=== PATIENT | male | born 1975 | race Caucasian/White ===

== ENCOUNTER 2017-08-10 14:42 | Emergency (ER) | payer BC, OTHER ==
[2017-08-10] MEDS ORDERED: SODIUM CHLORIDE 0.9% 1,000 ML IV STA (16:24)
[2017-08-10] MEDS ORDERED: ONDANSETRON 4 MG/2 ML VIAL IVP STA (16:24)
[2017-08-10] MEDS ORDERED: DICYCLOMINE 10 MG/ML 2 ML AMP IM STA (16:24)
[2017-08-10] MEDS ORDERED: FAMOTIDINE 20 MG/2 ML VIAL IV STA (16:25)
--- NOTE | 2017-08-10 16:35 | ED ---
General Adult HPI - General Chief complaint: Nausea/Vomiting/Diarrhea Stated complaint: Vomiting Time Seen by Provider: 08/10/17 16:16 Source: patient, RN notes reviewed Mode of arrival: ambulatory Limitations: no limitations - History of Present Illness Initial comments: 41-year-old male presents to the emergency Department chief complaint of nausea vomiting diarrhea. Patient states his whole family had this now he has it. Patient states that going on for about 5 days. Patient denies any abdominal pain with this. Patient denies any fever but states he has had chills. Patient states he just is feeling dry and dehydrated we thought we do some fluids to help him get through this. Patient is significant abdominal history or any abdominal surgeries. Patient does admit that he had both to 3 days with a clicking he's been increasing and evaluate that as well. He states now some bulging along the surgical left leg as well. Patient denies any recent fever, chills, shortness of breath, chest pain, back pain, abdominal pain, numbness or tingling, dysuria or hematuria, constipation, headaches or visual changes, or any other current symptoms. - Related Data Home Medications Medication Instructions Recorded Confirmed Lisinopril [Zestril] 20 mg PO DAILY 08/10/17 08/10/17 Previous Rx's Medication Instructions Recorded Dicyclomine [Bentyl] 10 mg PO TID #20 capsule 08/10/17 Ondansetron Odt [Zofran ODT] 4 mg PO Q8HR PRN #20 tab 08/10/17 Allergies Allergy/AdvReac Type Severity Reaction Status Date / Time No Known Allergies Allergy Verified 08/10/17 16:29 Review of Systems ROS Statement: Those systems with pertinent positive or pertinent negative responses have been documented in the HPI. ROS Other: All systems not noted in ROS Statement are negative. Past Medical History Past Medical History: Sleep Apnea/CPAP/BIPAP History of Any Multi-Drug Resistant Organisms: None Reported Past Surgical History: Joint Replacement Past Psychological History: No Psychological Hx Reported Smoking Status: Current every day smoker Past Alcohol Use History: None Reported Past Drug Use History: None Reported General Exam - General Exam Comments Initial Comments: General: The patient is awake and alert, in no distress, and does not appear acutely ill. Eye: Pupils are equal, round and reactive to light, extra-ocular movements are intact; there is normal conjunctiva bilaterally. No signs of icterus. Ears, nose, mouth and throat: There are moist mucous membranes and no oral lesions. Neck: The neck is supple, there is no tenderness. Cardiovascular: There is a regular rate and rhythm. No murmur, rub or gallop is appreciated. Respiratory: Lungs are clear to auscultation, respirations are non-labored, breath sounds are equal. No wheezes, stridor, rales, or rhonchi. Gastrointestinal: Soft, non-distended, non-tender abdomen without masses or organomegaly noted. There is no rebound or guarding present. No CVA tenderness. Bowel sounds are unremarkable. Back: There is no tenderness to palpation in the midline. There is no obvious deformity. No rashes noted. Musculoskeletal: Does appear to have a surgical incision to the left hip but does have some fluctuation of the skin. No redness no erythema most likely due to nonhealing deeper tissue together. Normal ROM, no tenderness, There is no pedal edema. There is no calf tenderness or swelling. Sensation intact. Pulses equal bilaterally 2+. Neurological: CN II-XII intact, There are no obvious motor or sensory deficits. Coordination appears grossly intact. Speech is normal. Skin: Skin is warm and dry and no rashes or lesions are noted. Psychiatric: Cooperative, appropriate mood & affect, normal judgment. Limitations: no limitations Course Vital Signs 08/10/17 14:53 Temperature 98.3 F Pulse Rate 92 Respiratory 18 Rate Blood Pressure 156/101 O2 Sat by Pulse 98 Oximetry Medical Decision Making - Medical Decision Making 41-year-old male presents for nausea vomiting diarrhea with left hip bulging. This time it just appears that the patient's deeper layers of skin have dehisced warming that has been chronic for the patient. At this time hip x- rays are negative of the repair. Patient's lab work is been reviewed at this time patient's symptoms are consistent with a gastroenteritis. It discuss however other etiologies for symptoms. Discussed return parameters and follow- up and all patient's questions. He stated he understood he is. This time we will be discharged home - Lab Data Result diagrams: 08/10/17 16:15 08/10/17 16:15 Lab Results 08/10/17 08/10/17 Range/Units 16:15 16:15 WBC 10.5 (3.8-10.6) k/uL RBC 5.08 (4.30-5.90) m/uL Hgb 15.0 (13.0-17.5) gm/dL Hct 45.9 (39.0-53.0) % MCV 90.4 (80.0-100.0) fL MCH 29.6 (25.0-35.0) pg MCHC 32.8 (31.0-37.0) g/dL RDW 13.1 (11.5-15.5) % Plt Count 283 (150-450) k/uL Neutrophils % 64 % Lymphocytes % 26 % Monocytes % 6 % Eosinophils % 2 % Basophils % 0 % Neutrophils # 6.7 (1.3-7.7) k/uL Lymphocytes # 2.8 (1.0-4.8) k/uL Monocytes # 0.6 (0-1.0) k/uL Eosinophils # 0.2 (0-0.7) k/uL Basophils # 0.0 (0-0.2) k/uL Sodium 141 (137-145) mmol/L Potassium 4.5 (3.5-5.1) mmol/L Chloride 108 H (98-107) mmol/L Carbon Dioxide 27 (22-30) mmol/L Anion Gap 6 mmol/L BUN 10 (9-20) mg/dL Creatinine 0.71 (0.66-1.25) mg/dL Est GFR (MDRD) Af Amer >60 (>60 ml/min/1.73 sqM) Est GFR (MDRD) Non-Af >60 (>60 ml/min/1.73 sqM) Glucose 102 H (74-99) mg/dL Calcium 9.2 (8.4-10.2) mg/dL Total Bilirubin 0.3 (0.2-1.3) mg/dL AST 23 (17-59) U/L ALT 31 (21-72) U/L Alkaline Phosphatase 84 (38-126) U/L Total Protein 6.5 (6.3-8.2) g/dL Albumin 3.9 (3.5-5.0) g/dL Amylase 33 (30-110) U/L Lipase 44 (23-300) U/L - Radiology Data Radiology results: report reviewed, image reviewed Disposition Clinical Impression: Nausea & vomiting, Diarrhea Disposition: HOME SELF-CARE Condition: Stable Instructions: Acute Nausea and Vomiting (ED), Acute Diarrhea (ED) Additional Instructions: Please use medication as discussed. Please follow up with family doctor if symptoms have not improved over the next two days. Please return to the emergency room if your symptoms increase or worsen or for any other concerns. Prescriptions: Dicyclomine [Bentyl] 10 mg PO TID #20 capsule Ondansetron Odt [Zofran ODT] 4 mg PO Q8HR PRN #20 tab PRN Reason: Nausea Referrals: Migdalia Nelson MD [Primary Care Provider] - 1-2 days Time of Disposition: 17:12
[2017-08-10 16:36] LABS: Basophils % (A) 0 %; CH 29.4; CHCM 32.7; Eosinophils # (A) 0.2 k/uL (0-0.7); Eosinophils % (A) 2 %; HCT 45.9 % (39.0-53.0); HDW 2.35; Luc # (Auto) 0.13; Luc % (Auto) 1; Lymphocytes # (A) 2.8 k/uL (1.0-4.8); Lymphocytes % (A) 26 %; MCH 29.6 pg (25.0-35.0); MCHC 32.8 g/dL (31.0-37.0); MCV 90.4 fL (80.0-100.0); Mean Platelet Volume 6.7; Monocytes # (A) 0.6 k/uL (0-1.0); Monocytes % (A) 6 %; Neutrophils # (A) 6.7 k/uL (1.3-7.7); Neutrophils % (A) 64 %; RBC 5.08 m/uL (4.30-5.90); RDW 13.1 % (11.5-15.5); WBC 10.5 k/uL (3.8-10.6); WBC (Perox) 10.27
[2017-08-10 16:50] LABS: ALT 31 U/L (21-72); AST 23 U/L (17-59); Alkaline Phosphatase 84 U/L (38-126); Amylase 33 U/L (30-110); Anion Gap 6 mmol/L; Blood Urea Nitrogen 10 mg/dL (9-20); Calcium 9.2 mg/dL (8.4-10.2); Carbon Dioxide 27 mmol/L (22-30); Chloride 108 mmol/L (98-107); Glucose 102 mg/dL (74-99); Non-African American GFR(MDRD) >60 (>60 ml/min/1.73 sqM); Potassium 4.5 mmol/L (3.5-5.1); Sodium 141 mmol/L (137-145); Total Bilirubin 0.3 mg/dL (0.2-1.3); Total Protein 6.5 g/dL (6.3-8.2)
--- NOTE | 2017-08-10 17:10 | XR ---
EXAMINATION TYPE: XR abdomen 2V DATE OF EXAM: 08/10/2017 CLINICAL HISTORY: Pain nausea vomiting diarrhea weakness for one week TECHNIQUE: 2 supine and one upright view obtained. COMPARISON: None. FINDINGS: Scattered gas is seen in non-distended small bowel loops. There is no bowel obstruction. G as and fecal material is seen in non-distended colon. There is no visceromegaly, pneumoperitoneum, pneumatosis, or abnormal calcifications. The lung bases and pleural spaces are unremarkable. Skeletal structures are intact. IMPRESSION: NO ACUTE RADIOGRAPHIC PROCESS.
--- NOTE | 2017-08-10 17:12 | XR ---
PROCEDURE: XR pelvis AP view DATE AND TIME: 08/10/2017 5:02 PM REFERRING PHYSICIAN: Gin Ruiz CLINICAL INDICATION: PHH, Pain TECHNIQUE: Department protocol. COMPARISON: None FINDINGS: There is no fracture or malalignment. The soft tissues are unremarkable. Bilateral THR are without pe riprosthesis lucencies. IMPRESSION: NO ACUTE PROCESS.
[2017-08-10 17:40] VITALS: BP 145/87; PULSE 76; RESP 16; TEMP 98
== END 2017-08-10 17:41 | disposition home or self-care (01) ==
LOC: EC 14:42
DX: R11.2 Nausea with vomiting, unspecified (principal); R19.7 Diarrhea, unspecified; F17.200 Nicotine dependence, unspecified, uncomplicated; Z79.899 Other long term (current) drug therapy
CPT/HCPCS: 36415; 80053; 82150; 83690; 85025; 72170; 74020; 99284; 96374; 96375; 96361; 96372; J0500; J2405

== ENCOUNTER 2018-10-02 10:40 | Emergency (ER) | payer OTHER ==
[2018-10-02 10:44] VITALS: RESP 18; TEMP 98.1
[2018-10-02] MEDS ORDERED: MORPHINE SULFATE 2 MG/ML SYRINGE IVP STA (11:15)
--- NOTE | 2018-10-02 11:40 | XR ---
EXAMINATION TYPE: XR chest 2V DATE OF EXAM: 10/02/2018 COMPARISON: Prior chest 10/04/2016 HISTORY: Left-sided rib pain, trauma TECHNIQUE: Frontal and lateral views of the chest are obtained. FINDINGS: There is no focal air space opacity, pleural effusion, or pneumothorax seen. The cardiac silhouette size is within normal limits. The osseous structures are intact. IMPRESSION: No acute cardiopulmonary process.
[2018-10-02 11:43] LABS: Basophils # (A) 0.1 k/uL (0-0.2); Basophils % (A) 0 %; Eosinophils # (A) 0.2 k/uL (0-0.7); Eosinophils % (A) 1 %; HCT 47.9 % (39.0-53.0); HGB 15.7 gm/dL (13.0-17.5); Lymphocytes # (A) 1.5 k/uL (1.0-4.8); Lymphocytes % (A) 10 %; MCH 29.7 pg (25.0-35.0); MCHC 32.7 g/dL (31.0-37.0); MCV 90.7 fL (80.0-100.0); Mean Platelet Volume 6.7; Monocytes # (A) 0.7 k/uL (0-1.0); Monocytes % (A) 5 %; Neutrophils # (A) 12.3 k/uL (1.3-7.7); Neutrophils % (A) 83 %; Platelet Count 275 k/uL (150-450); RBC 5.28 m/uL (4.30-5.90); RDW 13.3 % (11.5-15.5); WBC 14.8 k/uL (3.8-10.6)
[2018-10-02 12:00] LABS: ALT 30 U/L (21-72); AST 29 U/L (17-59); Albumin 4.4 g/dL (3.5-5.0); Alkaline Phosphatase 104 U/L (38-126); Anion Gap 8 mmol/L; Blood Urea Nitrogen 12 mg/dL (9-20); Calcium 9.5 mg/dL (8.4-10.2); Carbon Dioxide 25 mmol/L (22-30); Chloride 106 mmol/L (98-107); Glucose 99 mg/dL (74-99); Potassium 4.7 mmol/L (3.5-5.1); Sodium 139 mmol/L (137-145); Total Bilirubin 0.4 mg/dL (0.2-1.3); Total Protein 7.3 g/dL (6.3-8.2)
[2018-10-02] MEDS ORDERED: HYDROmorphone 1 MG/ML 1 ML SYRINGE IVP STA (12:43)
--- NOTE | 2018-10-02 12:44 | ED ---
Fall HPI - General Chief Complaint: Fall Stated Complaint: Fall approx 10 feet Time Seen by Provider: 10/02/18 10:45 Source: patient Mode of arrival: wheelchair - History of Present Illness Initial Comments: 42-year-old male who denies past medical history presents today for chief complaint of fall from ladder with left flank pain, about 9-10 feet. Patient states that he was cleaning out his gutters this morning when the ladder slipped from below causing him to fall down onto the ladder on his left flank/ side. Patient complains of left flank/side pain. Pt states that the pain is sharp and increases with inspiration. He also noticed a bruise and abrasion the left groin, he states this is where his suspenders pulled on his skin. Pt denies head injury, neck pain, injury to extremities, LOC, hip pain, back pain, chest pain, shortness of breath, dizziness, abdominal pain, paresthesias of the upper or lower extremities, visual changes, diplopia, muscle weakness, anterior chest trauma/injury, nausea, vomiting, headache, dyspnea upon exertion. Remainder of ROS (-). Pt states that he immediately presented to the ER for evaluation denies taking medication prior. Upon arrival pt is hypertensive, remainder of VS within acceptable limits. Pt appears well in no acute distress. - Related Data Home Medications Medication Instructions Recorded Confirmed Ibuprofen 800 mg PO HS 10/02/18 10/02/18 Lisinopril [Zestril] 10 mg PO HS 10/02/18 10/02/18 Ranitidine HCl [Zantac] 300 mg PO HS 10/02/18 10/02/18 Allergies Allergy/AdvReac Type Severity Reaction Status Date / Time No Known Allergies Allergy Verified 10/02/18 10:59 Review of Systems ROS Statement: Those systems with pertinent positive or pertinent negative responses have been documented in the HPI. ROS Other: All systems not noted in ROS Statement are negative. Constitutional: Denies: fever, chills, night sweats Eyes: Denies: eye pain ENT: Denies: ear pain, throat pain, dental pain, hearing loss Respiratory: Denies: cough, dyspnea, wheezes, hemoptysis, stridor Cardiovascular: Denies: chest pain, palpitations, dyspnea on exertion Endocrine: Denies: fatigue Gastrointestinal: Reports: as per HPI (left side/flank pain). Denies: abdominal pain, nausea, vomiting, diarrhea, constipation, hematemesis, melena Genitourinary: Denies: urgency, frequency, hematuria Musculoskeletal: Denies: back pain Skin: Reports: as per HPI (bruising left groin with skin tear). Denies: rash, lesions Neurological: Denies: headache, weakness, numbness, paresthesias, confusion, abnormal gait, vertigo Past Medical History Past Medical History: Sleep Apnea/CPAP/BIPAP History of Any Multi-Drug Resistant Organisms: None Reported Past Surgical History: Joint Replacement Past Psychological History: No Psychological Hx Reported Smoking Status: Current every day smoker Past Alcohol Use History: None Reported Past Drug Use History: None Reported General Exam - General Exam Comments Initial Comments: General: The patient is awake and alert, in no distress, and does not appear acutely ill. Eye: +3 mm pupils are equal, round and reactive to light, extra-ocular movements are intact. No APD. No nystagmus. There is normal conjunctiva bilaterally. No signs of icterus. Ears, nose, mouth and throat: There are moist mucous membranes and no oral lesions. Neck: The neck is supple, there is no tenderness or JVD. She denies any tenderness to palpation of the C-spine, he is able to fully flex, extend, lateral flex and rotate. Cardiovascular: There is a regular rate and rhythm. No murmur, rub or gallop is appreciated. Respiratory: Lungs are clear to auscultation, respirations are non-labored, breath sounds are equal. No wheezes, stridor, rales, or rhonchi. Gastrointestinal: Soft, non-distended, non-tender abdomen without masses or organomegaly noted. There is no rebound or guarding present. No CVA tenderness. Bowel sounds are unremarkable. Pt admits to pain to palpation along left side of abdomen/flank- no noted ecchymosis, swelling or erythema. Musculoskeletal: She denies any midline tenderness to patient along the spine from cervical to lumbar. Normal ROM at the upper and lower extremities equally bilaterally, no tenderness. Strength 5/5. Sensation intact of the upper and lower extremities equally bilaterally. Radial, femoral and DP pulses equal bilaterally 2+. Neurological: A&O x 3. CN II-XII intact, There are no obvious motor or sensory deficits. Coordination appears grossly intact. Speech is normal. Skin: Skin is warm and dry and no rashes. Superifical skin tear and bruising noted of left groin- no tenderness to palpation. Psychiatric: Cooperative, appropriate mood & affect, normal judgment. Limitations: no limitations Course Vital Signs 10/02/18 10/02/18 10:42 15:15 Temperature 98.1 F Pulse Rate 85 89 Respiratory 18 18 Rate Blood Pressure 155/111 137/76 O2 Sat by Pulse 99 95 Oximetry Medical Decision Making - Medical Decision Making 42yo male with cc of fall withou any head trauma. No midline tenderness to palpation of the spine. CT abdomen/pelvis negative for acute intrabdominal process/bleeding, there is a 11th rib fracture. CXR (-) for pneumothorax or acute pulmonary process. Labs as noted above. During stay pt given 2g morphine and 0.5mg dilaudid for pain mgmt. Upon discharge pt given tylenol #3 start pack- risk associated and use discussed at length patient including risk of overdose, deaf, addiction. Patient was instructed to avoid use of machinery, working or driving with use of medication. Patient verbalizes understanding. Case discussed in detail with who agreed with impression and plan. At this time feel patient is stable for discharge with primary care follow-up one to 2 days. Return parameters discussed in detail patient, with strict return parameters for any abdominal pain, shorts of breath or increasing worsening pain or other concerning symptoms. Patient verbalized understanding. Patient tetanus updated due to skin tear in the left inguinal area. Pt was discharged in stable condition. Repeat BP within acceptable limits. - Lab Data Result diagrams: 10/02/18 11:21 10/02/18 11:21 Lab Results 10/02/18 10/02/18 Range/Units 11:21 11:21 WBC 14.8 H (3.8-10.6) k/uL RBC 5.28 (4.30-5.90) m/uL Hgb 15.7 (13.0-17.5) gm/dL Hct 47.9 (39.0-53.0) % MCV 90.7 (80.0-100.0) fL MCH 29.7 (25.0-35.0) pg MCHC 32.7 (31.0-37.0) g/dL RDW 13.3 (11.5-15.5) % Plt Count 275 (150-450) k/uL Neutrophils % 83 % Lymphocytes % 10 % Monocytes % 5 % Eosinophils % 1 % Basophils % 0 % Neutrophils # 12.3 H (1.3-7.7) k/uL Lymphocytes # 1.5 (1.0-4.8) k/uL Monocytes # 0.7 (0-1.0) k/uL Eosinophils # 0.2 (0-0.7) k/uL Basophils # 0.1 (0-0.2) k/uL Sodium 139 (137-145) mmol/L Potassium 4.7 (3.5-5.1) mmol/L Chloride 106 (98-107) mmol/L Carbon Dioxide 25 (22-30) mmol/L Anion Gap 8 mmol/L BUN 12 (9-20) mg/dL Creatinine 0.77 (0.66-1.25) mg/dL Est GFR (CKD-EPI)AfAm >90 (>60 ml/min/1.73 sqM) Est GFR (CKD-EPI)NonAf >90 (>60 ml/min/1.73 sqM) Glucose 99 (74-99) mg/dL Calcium 9.5 (8.4-10.2) mg/dL Total Bilirubin 0.4 (0.2-1.3) mg/dL AST 29 (17-59) U/L ALT 30 (21-72) U/L Alkaline Phosphatase 104 (38-126) U/L Total Protein 7.3 (6.3-8.2) g/dL Albumin 4.4 (3.5-5.0) g/dL Disposition Clinical Impression: Left rib fracture, Contusion of groin, left, Skin tear Disposition: HOME SELF-CARE Condition: Good Instructions: Rib Fracture (ED), Contusion in Adults (ED) Additional Instructions: Please use medication as discussed, no driving, working, operating machinery while under the influence of Tylenol #3, please do not mix other pain medications, alcohol, xanax/ativan or muscle relaxants with Tylenol #3. Please follow-up with family doctor in the next 2 days with primary care provider. Please return to emergency room if the symptoms increase or worsen or for any other concerns, including worsening shortness of breath, abdominal pain, groin pain, hip or back pain. Is patient prescribed a controlled substance at d/c from ED?: No Referrals: Migdalia Nelson MD [Primary Care Provider] - 1-2 days Time of Disposition: 13:40
--- NOTE | 2018-10-02 13:13 | CT ---
EXAMINATION TYPE: CT abdomen pelvis w con DATE OF EXAM: 10/02/2018 COMPARISON: None INDICATION: Fall approximately 10 ft DLP: 2591 mGycm, Automated exposure control for dose reduction was used. CONTRAST: 100 ml mL of Isovue 300. Study performed without Oral Contrast TECHNIQUE: Axial images were obtained from above the diaphragm to the pubic rami in the axial plane a t 5 mm thick sections. Reconstructed images are reviewed on the computer in the coronal plane. FINDINGS: Limited CT sections are obtained the lung bases. The lung bases are clear. CT ABDOMEN: Liver: Normal Spleen: Normal Pancreas: Normal Adrenal glands: The adrenal glands are normal. Gallbladder: Normal Kidneys: No masses are evident. No hydronephrosis is present. No cysts are present. Delayed images were obtained through the kidneys, which remain unremarkable. Aorta: Vascular calcification is within the aorta. Inferior vena cava: Normal. CT PELVIS: No free fluid is within the pelvis. Loops of bowel within the abdomen and pelvis are normal. Scattered diverticuli within the sigmoid colon. Appendix: Normal as visualized. Urinary bladder: Normal. Genitourinary structures: Prostate has very limited evaluation. Osseous structures: There is a fracture of the posterior lateral 11th rib. Series 201 image 46 bone w indows. No additional areas suspicious for fracture are evident. Vertebral body heights appear preser praveen. Disc heights appear preserved. Alignment is unremarkable. No suspicious lytic or sclerotic lesio ns. Bilateral hip prosthesis causes significant beam hardening artifact in the lower pelvis making po rtions nondiagnostic. IMPRESSIONS: 1. Lateral left 11th rib fracture. 2. No suspicious intra-abdominal changes CT abdomen pelvis as visualized.
[2018-10-02] MEDS ORDERED: ACET/COD 300 MG/30 MG STARTER PACK 6 TAB BTL PO STA (13:26)
[2018-10-02] MEDS ORDERED: DIPH,PERTUS(ACELL)TETVAC-LF 0.5 ML VIAL IM ONE (13:54)
[2018-10-02 15:17] VITALS: BP 137/76; PULSE 89
== END 2018-10-02 15:15 | disposition home or self-care (01) ==
LOC: EC 10:40
DX: S22.32XA Fracture of one rib, left side, initial encounter for closed fracture (principal); S31.114A Laceration without foreign body of abdominal wall, left lower quadrant without penetration into peritoneal cavity, initial encounter; F17.200 Nicotine dependence, unspecified, uncomplicated; G47.30 Sleep apnea, unspecified; Z99.89 Dependence on other enabling machines and devices; Z96.9 Presence of functional implant, unspecified; Z79.1 Long term (current) use of non-steroidal anti-inflammatories (NSAID); Z79.899 Other long term (current) drug therapy; Z23 Encounter for immunization; W11.XXXA Fall on and from ladder, initial encounter; Y92.89 Other specified places as the place of occurrence of the external cause; Y93.H9 Activity, other involving exterior property and land maintenance, building and construction
CPT/HCPCS: 36415; 80053; 85025; 71046; 74177; 90715; 99284; 96374; 96375; 90471; J2270; J1170; Q9967

== ENCOUNTER → 2018-10-16 | Outpatient (CLI) | payer OTHER ==
--- NOTE | 2018-10-16 16:51 | XR ---
EXAMINATION TYPE: XR ribs LT DATE OF EXAM: 10/16/2018 COMPARISON: Chest x-ray 10/02/2018 HISTORY: History of left rib fracture. Rib pain. TECHNIQUE: 4 views FINDINGS: There is nondisplaced fracture left posterior 10th rib. There is no pneumothorax. Costophre chelo angle is clear. Left lung is clear of infiltrate. IMPRESSION: Left 10th rib fracture appears relatively acute..
--- NOTE | 2018-10-17 17:12 | XR ---
EXAMINATION TYPE: XR chest 2V DATE OF EXAM: 10/16/2018 COMPARISON: 10/02/2018 INDICATION: Pain TECHNIQUE: Frontal and lateral views of the chest are obtained. FINDINGS: The heart size is normal. The pulmonary vasculature is normal. There is some streak opacity which may be fluid within the minor fissure on the right. Lungs otherwis e appear clear.. IMPRESSION: 1. A suspicious infiltrate is not identified. 2. Minimal fluid may be within the minor fissure.
== END | disposition home or self-care (01) ==
LOC: RADXRMAIN 16:10
PROVIDERS: ATTEND Internal Medicine
DX: S22.32XA Fracture of one rib, left side, initial encounter for closed fracture (principal); X58.XXXA Exposure to other specified factors, initial encounter
CPT/HCPCS: 71046

== ENCOUNTER 2021-03-09 13:23 | Emergency (ER) | payer OTHER ==
[2021-03-09 14:16] VITALS: RESP 18
--- NOTE | 2021-03-09 15:18 | XR ---
EXAMINATION TYPE: XR chest 2V DATE OF EXAM: 03/09/2021 COMPARISON: Chest x-ray October 16, 2018 HISTORY: Shortness of breath. TECHNIQUE: Frontal and lateral views of the chest are obtained. FINDINGS: There is mild reticular interstitial prominence bilaterally redemonstrated. There is no new suspicious focal air space opacity, pleural effusion, or pneumothorax seen. The cardiac silhouette size is stable and within normal limits. The osseous structures are intact. IMPRESSION: Perhaps mild underlying interstitial edema. No new suspicious focal infiltrate.
--- NOTE | 2021-03-09 15:42 | ED ---
SOB HPI - General Chief Complaint: Shortness of Breath Stated Complaint: Covid exposure, wants test Time Seen by Provider: 03/09/21 15:16 Source: patient Mode of arrival: ambulatory Limitations: no limitations - History of Present Illness Initial Comments: Patient is a 45-year-old male with history of hypertension, presenting to emergency Department with complaints of Covid-like symptoms for the last 2 days. Patient states his has tested positive for Covid. His symptoms started 2 days ago with cough, some shortness of breath and body aches. He denies any fevers or chills, no nausea or vomiting. He states he feels fatigued. He does have a cough but states he is a smoker and typically does have some form of a cough. He denies any chest pains, he has been able to eat and drink. He has no further complaints at this time. Upon arrival to the ER, his vital signs are stable, 96% on room air. - Related Data Home Medications Medication Instructions Recorded Confirmed Ibuprofen 800 mg PO HS 10/02/18 10/02/18 Ranitidine HCl [Zantac] 300 mg PO HS 10/02/18 10/02/18 lisinopriL [Zestril] 10 mg PO HS 10/02/18 10/02/18 Previous Rx's Medication Instructions Recorded Albuterol Inhaler [Ventolin Hfa 4 puff INHALATION RT-QID PRN #1 03/09/21 Inhaler] puff Dexamethasone [Decadron] 6 mg PO DAILY 7 Days #7 tablet 03/09/21 Allergies Allergy/AdvReac Type Severity Reaction Status Date / Time No Known Allergies Allergy Verified 03/09/21 14:17 Review of Systems ROS Statement: Those systems with pertinent positive or pertinent negative responses have been documented in the HPI. ROS Other: All systems not noted in ROS Statement are negative. Past Medical History Past Medical History: Hypertension, Sleep Apnea/CPAP/BIPAP History of Any Multi-Drug Resistant Organisms: None Reported Past Surgical History: Joint Replacement Past Psychological History: No Psychological Hx Reported Smoking Status: Current every day smoker Past Alcohol Use History: None Reported Past Drug Use History: None Reported General Exam - General Exam Comments Initial Comments: GENERAL: Patient is well-developed and well-nourished. Patient is nontoxic and in no acute distress. HEAD: Atraumatic, normocephalic. EYES: Pupils equal round and reactive to light, extraocular movements intact, sclera anicteric, conjunctiva are normal. Eyelids were unremarkable. ENT: TMs normal, nares patent, oropharynx clear without exudates. Moist mucous membranes. NECK: Normal range of motion, supple without lymphadenopathy or JVD. LUNGS: Unlabored respirations. Breath sounds clear to auscultation bilaterally and equal. No wheezes rales or rhonchi. HEART: Regular rate and rhythm without murmurs, rubs or gallops. ABDOMEN: Soft, nontender, normoactive bowel sounds. No guarding, no rebound. No masses appreciated. : Deferred MUSCULOSKELETAL: Normal extremities with adequate strength and normal range of motion, no pitting or edema. No clubbing or cyanosis. NEUROLOGICAL: Patient is alert and oriented x 3. Motor and sensory are also intact. Cranial nerves II through XII grossly intact. Symmetrical smile. Normal speech, normal gait. PSYCH: Normal mood, normal affect. SKIN: Warm, Dry, normal turgor, no rashes or lesions noted. Limitations: no limitations Course Vital Signs 03/09/21 03/09/21 03/09/21 14:14 16:31 17:02 Temperature 98.5 F 98.7 F 98.0 F Pulse Rate 88 87 78 Respiratory 18 18 18 Rate Blood Pressure 144/92 153/93 159/99 O2 Sat by Pulse 96 95 94 L Oximetry Medical Decision Making - Medical Decision Making Patient is a 45-year-old male here with Covid-like symptoms for 2 days. His vital signs are stable upon arrival, his exam is unremarkable. His rapid test is positive. Chest x-ray shows some mild underlying interstitial edema, no new suspicious focal infiltrate. He does meet the qualifications for BAM infusion. Patient does agree to this. He had the infusion with no side effects. He is stable for discharge. I will start patient on steroids, inhaler for any shortness of breath. Return parameters were discussed with the patient he verbalizes understanding. Case discussed with Dr. Luther. - Lab Data Lab Results 03/09/21 Range/Units 14:18 Coronavirus (PCR) Detected A (Not Detectd) - EKG Data EKG Comments: Normal sinus rhythm, normal ECG, no signs of acute process. Ventricular rate 87, MD interval 128, QTc 358. Disposition Clinical Impression: COVID-19 Disposition: HOME SELF-CARE Condition: Stable Instructions (If sedation given, give patient instructions): Coronavirus Disease 2019 (COVID-19) Additional Instructions: Please return to the Emergency Department if symptoms worsen or any other concerns. Take steroids as prescribed, use inhaler as needed for any shortness of breath or cough. May take Tylenol or Motrin for any fevers or body aches. Follow-up with your PCP. Prescriptions: Dexamethasone [Decadron] 6 mg PO DAILY 7 Days #7 tablet Albuterol Inhaler [Ventolin Hfa Inhaler] 4 puff INHALATION RT-QID PRN #1 puff PRN Reason: Shortness Of Breath Is patient prescribed a controlled substance at d/c from ED?: No Referrals: Migdalia Nelson MD [Primary Care Provider] - 1-2 days
[2021-03-09] MEDS ORDERED: SODIUM CHLORIDE 0.9% 50 ML IVPB ONE (16:00)
[2021-03-09] MEDS ORDERED: BAMLANIVIMAB (EUA) 700 MG, ETESEVIMAB (EUA) 1,400 MG in SODIUM CHLORIDE 0.9% 50 ML IVPB ONE (16:00)
[2021-03-09 17:03] VITALS: PULSE 78; TEMP 98
[2021-03-09 17:04] VITALS: BP 159/99
== END 2021-03-09 18:11 | disposition home or self-care (01) ==
LOC: EC 13:23
DX: U07.1 COVID-19 (principal); I10 Essential (primary) hypertension; G47.30 Sleep apnea, unspecified; F17.200 Nicotine dependence, unspecified, uncomplicated; Z79.1 Long term (current) use of non-steroidal anti-inflammatories (NSAID); Z79.899 Other long term (current) drug therapy; Z79.52 Long term (current) use of systemic steroids
CPT/HCPCS: 93005; 87635; 71046; 99285; Q0245

== ENCOUNTER 2021-08-11 15:56 | Emergency (ER) | payer OTHER ==
[2021-08-11 16:40] VITALS: BP 156/94; PULSE 90; RESP 18; TEMP 98.8
[2021-08-11] MEDS ORDERED: ceFAZolin 1,000 MG VIAL (IM USE) IM STA (17:29)
[2021-08-11] MEDS ORDERED: LIDOCAINE 1% INJ 10MG/ML (20 ML MDV) SQ ONE (17:29)
[2021-08-11] MEDS ORDERED: DIPH,PERTUS(ACELL)TETVAC-LF 0.5 ML VIAL IM ONE (17:29)
--- NOTE | 2021-08-11 18:00 | XR ---
RESULT: HISTORY: 2nd TECHNIQUE: 3 views of the right index finger were obtained. COMPARISON: None. FINDINGS: There is mildly comminuted and displaced fracture of the index finger distal phalangeal tuft with ove rlying soft tissue injury. There are associated few punctate soft tissue radiodense foci. IMPRESSION: Index finger distal phalangeal tuft fracture with overlying soft tissue injury and probable debris.
--- NOTE | 2021-08-11 18:20 | ED ---
General Adult HPI - General Chief complaint: Extremity Injury, Upper Stated complaint: [facility]-Finger Laceration Time Seen by Provider: 08/11/21 17:12 Source: patient, RN notes reviewed Mode of arrival: ambulatory Limitations: no limitations - History of Present Illness Initial comments: 45-year-old male presents to the emergency room for a chief complaint of second finger injury of the right hand. Patient states he was using a sledgehammer and hit the tip of his finger with it. Patient states he cracked the nail. States it is painful and bleeding. Patient is not up-to-date on tetanus. Patient denies any other injuries. States that his finger tip feels a little but numb.Patient has no other complaints at this time including shortness of breath, chest pain, abdominal pain, nausea or vomiting, headache, or visual changes. - Related Data Home Medications Medication Instructions Recorded Confirmed Losartan-Hctz 50-12.5 mg [Hyzaar 1 tab PO DAILY 08/11/21 08/11/21 50-12.5] Allergies Allergy/AdvReac Type Severity Reaction Status Date / Time No Known Allergies Allergy Verified 08/11/21 17:59 Review of Systems ROS Statement: Those systems with pertinent positive or pertinent negative responses have been documented in the HPI. ROS Other: All systems not noted in ROS Statement are negative. Past Medical History Past Medical History: Hypertension, Sleep Apnea/CPAP/BIPAP History of Any Multi-Drug Resistant Organisms: None Reported Past Surgical History: Joint Replacement Past Psychological History: No Psychological Hx Reported Smoking Status: Current every day smoker Past Alcohol Use History: None Reported Past Drug Use History: None Reported General Exam Limitations: no limitations General appearance: alert, in no apparent distress Head exam: Present: atraumatic Eye exam: Present: normal appearance, PERRL, EOMI. Absent: scleral icterus, conjunctival injection ENT exam: Present: normal exam, mucous membranes moist Neck exam: Present: normal inspection, full ROM. Absent: tenderness Respiratory exam: Present: normal lung sounds bilaterally. Absent: respiratory distress, wheezes Cardiovascular Exam: Present: regular rate, normal rhythm, normal heart sounds Extremities exam: Present: full ROM (Full range motion of all digits of the right hand), tenderness (Tenderness only to the distal phalanx of the right second finger), normal capillary refill (cap refill less than 2 seconds in the right second digit and all digits of the right hand. Radial pulse 2+.), other (Patient has mild edema to the right second fingertip with laceration through the nail bed) Course Vital Signs 08/11/21 16:37 Temperature 98.8 F Pulse Rate 90 Respiratory 18 Rate Blood Pressure 156/94 O2 Sat by Pulse 96 Oximetry Procedures - Laceration Laceration #1 Consent Obtained: verbal consent Indication: laceration Site: hand Size (cm): 1 Description: linear Depth: simple, single layer Anesthetic Used: lidocaine 1% Anesthesia Technique: local infiltration Pre-repair: wound explored, irrigated extensively Type of Sutures: nylon Size of Sutures: 5-0 Number of Sutures: 2 Technique: simple, interrupted Patient Tolerated Procedure: well, no complications Medical Decision Making - Medical Decision Making X-ray was obtained which showed the index finger distal phalangeal tuft fracture with overlying soft tissue injury and probable debris. I did irrigate this out as much as possible. I do not see any foreign bodies. Digital block was performed. Distal aspect of the nail was removed. Nailbed was sutured. Patient was given Ancef and tetanus. He was started on Keflex outpatient. Was wrapped by nurse and splint applied. He will be referred to orthopedics given this is an open fracture. Disposition Clinical Impression: Open fracture, Finger laceration Disposition: HOME SELF-CARE Condition: Good Instructions (If sedation given, give patient instructions): Finger Fracture (ED) Additional Instructions: Please keep wound clean with gentle soap and water. Apply antibiotic ointment daily. Take antibiotic as directed. Use splint. Follow-up with orthopedics by calling tomorrow for an appointment. Return to the emergency room for any worsening symptoms. Is patient prescribed a controlled substance at d/c from ED?: No Referrals: Migdalia Nelson MD [Primary Care Provider] - 1-2 days Trenton Zuniga MD [STAFF PHYSICIAN] - 1-2 days Time of Disposition: 18:42
[2021-08-11] MEDS ORDERED: BACITRACIN OINT 1 EACH PACKET TOPICAL ONE (18:36)
[2021-08-11] MEDS ORDERED: BACITRACIN OINT 1 EACH PACKET TOPICAL STA (18:42)
== END 2021-08-11 18:48 | disposition home or self-care (01) ==
LOC: EC 15:56
DX: S62.630B Displaced fracture of distal phalanx of right index finger, initial encounter for open fracture (principal); S61.210A Laceration without foreign body of right index finger without damage to nail, initial encounter; I10 Essential (primary) hypertension; Z79.899 Other long term (current) drug therapy; W23.1XXA Caught, crushed, jammed, or pinched between stationary objects, initial encounter; Z23 Encounter for immunization
CPT/HCPCS: 99283; 96372; 90471; 12001; 73140; 90715; J0690; J2001

== ENCOUNTER 2021-10-10 17:54 | Emergency (ER) | payer OTHER ==
[2021-10-10] MEDS ORDERED: guaiFENesin-DM 600/30MG 1 EACH TAB.ER.12H PO STA (20:26)
[2021-10-10] MEDS ORDERED: predniSONE 50 MG TAB PO STA (20:26)
--- NOTE | 2021-10-10 20:42 | ED ---
URI HPI - General Chief Complaint: Upper Respiratory Infection Stated Complaint: cough, headache, nausea Time Seen by Provider: 10/10/21 20:10 Source: patient Mode of arrival: ambulatory Limitations: no limitations - History of Present Illness Initial Comments: 45-year-old male patient presents to the emergency department today for evaluation of cough, nasal congestion, sore throat. States he's been sick since Tuesday with symptoms. Does report some mild shortness of breath. Denies taking any medication for his symptoms. States he's had low-grade fevers. Does report history of smoking. Denies any chronic lung conditions. Denies any chest pain. Denies nausea, vomiting, diarrhea. Has had COVID-19 in the past. Patient denies any recent rash, abdominal pain, constipation, back pain, numbness, tingling, dizziness, weakness, hematuria, dysuria, urinary urgency, urinary frequency, headache, visual changes, or any other complaints. - Related Data Home Medications Medication Instructions Recorded Confirmed Losartan-Hctz 50-12.5 mg [Hyzaar 1 tab PO DAILY 08/11/21 08/11/21 50-12.5] Previous Rx's Medication Instructions Recorded Cephalexin [Keflex] 500 mg PO Q6HR 7 Days #28 cap 08/11/21 guaiFENesin-DM 600/30MG [Mucinex 2 each PO Q12HR PRN #20 tab 10/10/21 Dm] predniSONE 50 mg PO DAILY #5 tablet 10/10/21 Allergies Allergy/AdvReac Type Severity Reaction Status Date / Time No Known Allergies Allergy Verified 10/10/21 18:59 Review of Systems ROS Statement: Those systems with pertinent positive or pertinent negative responses have been documented in the HPI. ROS Other: All systems not noted in ROS Statement are negative. Past Medical History Past Medical History: Hypertension, Sleep Apnea/CPAP/BIPAP History of Any Multi-Drug Resistant Organisms: None Reported Past Surgical History: Joint Replacement Past Psychological History: No Psychological Hx Reported Smoking Status: Current every day smoker Past Alcohol Use History: None Reported Past Drug Use History: None Reported General Exam Limitations: no limitations General appearance: alert, in no apparent distress, other (This is a well- developed, well-nourished adult male patient in no acute distress.) Eye exam: Present: normal appearance, PERRL, EOMI. Absent: scleral icterus, conjunctival injection, periorbital swelling ENT exam: Present: mucous membranes moist, TM's normal bilaterally. Absent: normal exam, normal oropharynx (Pharyngeal erythema, tonsillar hypertrophy. No tonsillar exudate. Tonsils are symmetric and uvula is midline.) Neck exam: Present: normal inspection. Absent: tenderness, meningismus, lymphadenopathy Respiratory exam: Present: normal lung sounds bilaterally. Absent: respiratory distress, wheezes, rales, rhonchi, stridor Cardiovascular Exam: Present: regular rate, normal rhythm, normal heart sounds. Absent: systolic murmur, diastolic murmur, rubs, gallop, clicks GI/Abdominal exam: Present: soft, normal bowel sounds. Absent: distended, t enderness, guarding, rebound, rigid Neurological exam: Present: alert, oriented X3, CN II-XII intact Psychiatric exam: Present: normal affect, normal mood Skin exam: Present: warm, dry, intact, normal color. Absent: rash Course Vital Signs 10/10/21 18:55 Temperature 98.8 F Pulse Rate 93 Respiratory 20 Rate Blood Pressure 148/88 O2 Sat by Pulse 96 Oximetry Medical Decision Making - Medical Decision Making 45-year-old male patient presents to the emergency department today for evaluation of cough, congestion, intermittent shortness of breath. Physical examination did reveal clear equal lung sounds. Vital signs are unremarkable. Chest x-ray negative. Tested negative for strep and COVID-19. I did discuss signs results with him. We discussed bronchitis and viral upper respiratory symptoms for his symptoms are to be given prescriptions for Mucinex D and prednisone. Is instructed follow up with his primary care physician for recheck in 1-2 days. Return parameters were discussed in detail. He verbalizes understanding and agrees with this plan. Case discussed with my attending Dr. Luther. - Lab Data Lab Results 10/10/21 10/10/21 Range/Units 19:04 20:24 Coronavirus (PCR) Not Detected (Not Detectd) Group A Strep Rapid Negative (Negative) - Radiology Data Radiology results: report reviewed, image reviewed Views of the chest are obtained. Report was reviewed in its entirety. Impression by Dr. Olsen shows normal chest. No change. Disposition Clinical Impression: Viral upper respiratory infection, Bronchitis Disposition: HOME SELF-CARE Condition: Good Instructions (If sedation given, give patient instructions): Upper Respiratory Infection (ED), Acute Bronchitis (ED) Additional Instructions: Take medications as directed. Follow-up with her primary care physician for recheck in 1-2 days. Return for any new, worsening, or concerning symptoms. Prescriptions: guaiFENesin-DM 600/30MG [Mucinex Dm] 2 each PO Q12HR PRN #20 tab PRN Reason: Cough predniSONE 50 mg PO DAILY #5 tablet Is patient prescribed a controlled substance at d/c from ED?: No Referrals: Migdalia Nelson MD [Primary Care Provider] - 1-2 days Time of Disposition: 21:53
--- NOTE | 2021-10-10 21:06 | XR ---
EXAMINATION TYPE: XR chest 2V DATE OF EXAM: 10/10/2021 COMPARISON: NONE HISTORY: Cough. Short of breath. TECHNIQUE: 2 views FINDINGS: Heart and mediastinum are normal. Lungs are clear. Diaphragm is normal. Bony thorax is inta ct. IMPRESSION: Normal chest. No change.
[2021-10-10 22:12] VITALS: BP 152/99; PULSE 87; RESP 18; TEMP 99.1
== END 2021-10-10 22:10 | disposition home or self-care (01) ==
LOC: EC 17:54
DX: J06.9 Acute upper respiratory infection, unspecified (principal); J40 Bronchitis, not specified as acute or chronic; F17.200 Nicotine dependence, unspecified, uncomplicated; I10 Essential (primary) hypertension; Z20.822 Contact with and (suspected) exposure to COVID-19; Z79.899 Other long term (current) drug therapy
CPT/HCPCS: 87081; 87430; 87635; 71046; 99285; J7512

== ENCOUNTER 2024-08-16 10:39 | Emergency (ER) | payer OTHER ==
[2024-08-16 10:42] VITALS: PULSE 86; RESP 16; TEMP 97.7
--- NOTE | 2024-08-16 11:28 | ED ---
Back Pain HPI - General Chief Complaint: Back Pain/Injury Stated Complaint: fall/hurt back Time Seen by Provider: 08/16/24 10:59 Source: patient, RN notes reviewed Limitations: no limitations - History of Present Illness Initial Comments: 48-year-old male presenting to the ER with chief complaint of low back pain x 1 day. States he was bending down to tie shoes this morning and felt immediate sharp pain in his lower back, located in the middle of his lower back as well as the lower right back. States the pain is intermittent and worse with movement and walking. Denies radiation of pain. Denies fever, chills. Denies numbness, tingling, or weakness of the bilateral lower extremities. Denies urinary symptoms, hematuria. - Related Data Previous Rx's Medication Instructions Recorded Cyclobenzaprine [Flexeril] 10 mg PO TID PRN #15 tab 08/16/24 Lidocaine 5% Patch [Lidoderm 5% 1 patch TOPICAL DAILY 7 Days #7 08/16/24 Patch] patch Naproxen [Naprosyn] 500 mg PO Q12HR PRN #30 tablet 08/16/24 Allergies Allergy/AdvReac Type Severity Reaction Status Date / Time No Known Allergies Allergy Verified 08/16/24 11:19 Review of Systems ROS Statement: Those systems with pertinent positive or pertinent negative responses have been documented in the HPI. ROS Other: All systems not noted in ROS Statement are negative. Past Medical History Past Medical History: Hypertension, Sleep Apnea/CPAP/BIPAP History of Any Multi-Drug Resistant Organisms: None Reported Past Surgical History: Joint Replacement Past Psychological History: No Psychological Hx Reported Smoking Status: Current every day smoker Past Alcohol Use History: None Reported Past Drug Use History: None Reported General Exam Limitations: no limitations General appearance: alert, in no apparent distress Head exam: Present: atraumatic, normocephalic, normal inspection GI/Abdominal exam: Present: soft, normal bowel sounds. Absent: distended, ten derness, guarding, rebound, rigid Back exam: Present: normal inspection, full ROM (Pain with flexion and extension), tenderness (Tenderness in lumbar spine and right paraspinal area), paraspinal tenderness, other (Full strength and range of motion of bilateral hips, no saddle anesthesia, full sensation and DP pulses bilateral). Absent: CVA tenderness (R), CVA tenderness (L), rash noted Neurological exam: Present: alert, oriented X3 Psychiatric exam: Present: normal affect, normal mood Skin exam: Present: warm, dry, intact, normal color. Absent: rash Course Vital Signs 08/16/24 08/16/24 10:40 12:55 Temperature 97.7 F Pulse Rate 86 Respiratory 16 Rate Blood Pressure 166/119 160/105 O2 Sat by Pulse 99 Oximetry Medical Decision Making - Medical Decision Making Was pt. sent in by a medical professional or institution (, [facility], FLAVORING MACHINE OPERATOR, urgent care, hospital, or fpc...) When possible be specific @ -No Did you speak to anyone other than the patient for history (EMS, parent, family, police, friend...)? What history was obtained from this source @ -No Did you review nursing and triage notes (agree or disagree)? Why? @ -I reviewed and agree with nursing and triage notes Were old charts reviewed (outside hosp., previous admission, EMS record, old EKG, old radiological studies, urgent care reports/EKG's, fpc records)? Report findings @ -No old charts were reviewed Differential Diagnosis (chest pain, altered mental status, abdominal pain women, abdominal pain men, vaginal bleeding, weakness, fever, dyspnea, syncope, headache, dizziness, GI bleed, back pain, seizure, CVA, palpatations, mental health, musculoskeletal)? @ -Differential Back Pain: Strain, zoster, cauda equina syndrome, epidural abscess, vertebral osteomyelitis, discitis, fracture, subluxation, disc herniation, DJD, spinal stenosis, dissection, AAA, pancreatitis, peptic ulcer disease, pyelonephritis, kidney stone, this is not meant to be an all-inclusive list. EKG interpreted by me (3pts min.). @ -None X-rays interpreted by me (1pt min.). @ -X-ray lumbar spine reveals CT interpreted by me (1pt min.). @ -None done U/S interpreted by me (1pt. min.). @ -None done What testing was considered but not performed or refused? (CT, X-rays, U/S, labs)? Why? @ -None What meds were considered but not given or refused? Why? @ -None Did you discuss the management of the patient with other professionals (professionals i.e. , PA, FLAVORING MACHINE OPERATOR, lab, RT, psych nurse, social media developer, dog boarder, teacher, mortgage loan officer originator, case investigator)? Give summary @ -No Was smoking cessation discussed for >3mins.? @ -No Was critical care preformed (if so, how long)? @ -No Were there social determinants of health that impacted care today? How? (Homelessness, low income, unemployed, alcoholism, drug addiction, transportation, low edu. Level, literacy, decrease access to med. care, custodial, rehab)? @ -No Was there de-escalation of care discussed even if they declined (Discuss DNR or withdrawal of care, Hospice)? DNR status @ -No What co-morbidities impacted this encounter? (DM, HTN, Smoking, COPD, CAD, Cancer, CVA, ARF, Chemo, Hep., AIDS, mental health diagnosis, sleep apnea, morbid obesity)? @ -None Was patient admitted / discharged? Hospital course, mention meds given and route, prescriptions, significant lab abnormalities, going to OR and other pertinent info. @ -Discharge. This is a 48-year-old male presenting to the ER with chief complaint of low back pain x 1 day after bending over to tie his shoes. Patient is hypertensive, all other vital signs within normal limits. Patient states he has not been taking his blood pressure medications due to insurance issues. No red flag symptoms. Neurovascularly intact. She was given she was provided with IM Toradol and oral Flexeril for symptom control. X-ray reveals no acute process. Findings discussed with patient. Upon reevaluation, patient states symptoms have improved. Diagnosis of low back strain discussed with patient. Supportive care/return precautions discussed. Also discussed hypertension with patient as well as lifestyle modifications and cardiopulmonary red flag symptoms. Discharged with analgesics. Case was discussed with my ED attending Dr. Morrow. Undiagnosed new problem with uncertain prognosis? @ -No Drug Therapy requiring intensive monitoring for toxicity (Heparin, Nitro, Insulin, Cardizem)? @ -No Were any procedures done? @ -No Diagnosis/symptom? @ -Low back strain Acute, or Chronic, or Acute on Chronic? @ -Acute Uncomplicated (without systemic symptoms) or Complicated (systemic symptoms)? @ -Uncomplicated Side effects of treatment? @ -No Exacerbation, Progression, or Severe Exacerbation? @ -No Poses a threat to life or bodily function? How? (Chest pain, [place], [place], pneumonia, PE, COPD, DKA, ARF, appy, cholecystitis, CVA, Diverticulitis, Homicidal, Suicidal, threat to staff... and all critical care pts) @ -No Disposition Clinical Impression: Low back strain Disposition: HOME SELF-CARE Condition: Stable Instructions (If sedation given, give patient instructions): Acute Low Back Pain (ED) Additional Instructions: Take Flexeril and naproxen as needed for pain. Apply lidocaine patch once daily as needed for pain. Please return to the Emergency Department if symptoms worsen or any other concerns. Prescriptions: Cyclobenzaprine [Flexeril] 10 mg PO TID PRN #15 tab PRN Reason: Muscle Spasm Lidocaine 5% Patch [Lidoderm 5% Patch] 1 patch TOPICAL DAILY 7 Days #7 patch Naproxen [Naprosyn] 500 mg PO Q12HR PRN #30 tablet PRN Reason: Pain Is patient prescribed a controlled substance at d/c from ED?: No Referrals: Olga Luna [Primary Care Provider] - 1-2 days Time of Disposition: 12:50
[2024-08-16] MEDS: KETOROLAC 15 MG/ML 1 ML VIAL IM STA (11:42)
[2024-08-16] MEDS: CYCLOBENZAPRINE 10 MG TAB PO STA (11:43)
--- NOTE | 2024-08-16 12:03 | XR ---
Lumbar spine HISTORY: Low back injury. COMPARISON: None. TECHNIQUE: 3 views of lumbar spine were obtained in the standing position. FINDINGS: The lumbar vertebral segments are normal in height and alignment and there is no fracture or subluxat ion. There is mild levoscoliosis. There is mild degenerative disc disease throughout the lumbar spine wher e there is mild disc space narrowing and spondylosis. Visualized sacrum and SI joints. IMPRESSION: 1. No acute trauma. 2. Mild diffuse degenerative disc disease [facility], Workstation: [email or web address] 08/16/2024 12:01 PM
[2024-08-16 12:56] VITALS: BP 160/105
== END 2024-08-16 12:56 | disposition home or self-care (01) ==
LOC: EC 10:39
CPT/HCPCS: 72100; 96372; 99283

== ENCOUNTER 2024-12-15 17:53 | Emergency (ER) | payer OTHER ==
[2024-12-15 18:04] VITALS: BP 202/122; PULSE 88; RESP 18; TEMP 98.2
--- NOTE | 2024-12-15 18:22 | ED ---
Skin/Abscess/FB HPI - General Chief complaint: Skin/Abscess/Foreign Body Stated complaint: hit head 2 weeks ago infection Time Seen by Provider: 12/15/24 18:06 Source: patient, RN notes reviewed Mode of arrival: ambulatory Limitations: no limitations - History of Present Illness Initial comments: This is a 48-year-old male with history of hypertension presenting with infected scalp wound/pain for (02/28) x 1 day. Patient states he struck his scalp on a front cylinder loader 10 days ago, stating he has been keeping the laceration cleaned before he developed infection like symptoms earlier today. Patient denies discharge from wound, fever, chills, body aches. MD complaint: laceration Onset/Timin -: days(s) Location: head Severity scale (1-10): 4 Consistency: constant Associated symptoms: denies other symptoms Treatments Prior to Arrival: none - Related Data Previous Rx's Medication Instructions Recorded Cyclobenzaprine [Flexeril] 10 mg PO TID PRN #15 tab 08/16/24 Lidocaine 5% Patch [Lidoderm 5% 1 patch TOPICAL DAILY 7 Days #7 08/16/24 Patch] patch Naproxen [Naprosyn] 500 mg PO Q12HR PRN #30 tablet 08/16/24 Cephalexin [Keflex] 500 mg PO Q6HR 1 Days #28 cap 12/15/24 Mupirocin 2% Oint [Bactroban 2% 1 applic TOPICAL BID #22 gm 12/15/24 Oint] Allergies Allergy/AdvReac Type Severity Reaction Status Date / Time No Known Allergies Allergy Verified 12/15/24 17:59 Review of Systems ROS Statement: Those systems with pertinent positive or pertinent negative responses have been documented in the HPI. ROS Other: All systems not noted in ROS Statement are negative. Past Medical History Past Medical History: Hypertension, Sleep Apnea/CPAP/BIPAP History of Any Multi-Drug Resistant Organisms: None Reported Past Surgical History: Joint Replacement Past Psychological History: No Psychological Hx Reported Smoking Status: Vaper Past Alcohol Use History: None Reported Past Drug Use History: None Reported General Exam Limitations: no limitations General appearance: alert, in no apparent distress Head exam: Present: normocephalic, other (2 cm healing vertical laceration on right parietal scalp with surrounding erythema, warmth and tenderness. Negative purulent discharge. Positive right postauricular LAD) Eye exam: Present: normal appearance, PERRL, EOMI. Absent: scleral icterus, conjunctival injection, periorbital swelling ENT exam: Present: normal exam, mucous membranes moist Neck exam: Present: normal inspection. Absent: tenderness, meningismus, lymphadenopathy Respiratory exam: Present: normal lung sounds bilaterally. Absent: respiratory distress, wheezes, rales, rhonchi, stridor Cardiovascular Exam: Present: regular rate, normal rhythm, normal heart sounds. Absent: systolic murmur, diastolic murmur, rubs, gallop, clicks GI/Abdominal exam: Present: soft, normal bowel sounds. Absent: distended, tenderness, guarding, rebound, rigid Extremities exam: Present: normal inspection, full ROM, normal capillary refill. Absent: tenderness, pedal edema, joint swelling, calf tenderness Back exam: Present: normal inspection Neurological exam: Present: alert, oriented X3, CN II-XII intact Psychiatric exam: Present: normal affect, normal mood Skin exam: Present: warm, dry, intact, normal color. Absent: rash Course Vital Signs 12/15/24 17:59 Temperature 98.2 F Pulse Rate 88 Respiratory 18 Rate Blood Pressure 202/122 O2 Sat by Pulse 98 Oximetry Medical Decision Making - Medical Decision Making Was pt. sent in by a medical professional or institution (, PA, DOPE MAINTENANCE WORKER, urgent care, hospital, or senior care...) When possible be specific @ -No Did you speak to anyone other than the patient for history (EMS, parent, family, police, friend...)? What history was obtained from this source @ -No Did you review nursing and triage notes (agree or disagree)? Why? @ -I reviewed and agree with nursing and triage notes Were old charts reviewed (outside hosp., previous admission, EMS record, old EKG, old radiological studies, urgent care reports/EKG's, senior care records)? Report findings @ -No old charts were reviewed Differential Diagnosis (chest pain, altered mental status, abdominal pain women, abdominal pain men, vaginal bleeding, weakness, fever, dyspnea, syncope, headache, dizziness, GI bleed, back pain, seizure, CVA, palpatations, mental health, musculoskeletal)? @ -Cellulitis, erysipelas, laceration, abscess EKG interpreted by me (3pts min.). @ -Not done X-rays interpreted by me (1pt min.). @ -None done CT interpreted by me (1pt min.). @ -None done U/S interpreted by me (1pt. min.). @ -None done What testing was considered but not performed or refused? (CT, X-rays, U/S, labs)? Why? @ -None What meds were considered but not given or refused? Why? @ -None Did you discuss the management of the patient with other professionals (professionals i.e. Dr., PA, DOPE MAINTENANCE WORKER, lab, RT, psych nurse, social worker assistant, english drawer, teacher, contact officer, case managers)? Give summary @ -No Was smoking cessation discussed for >3mins.? @ -No Was critical care preformed (if so, how long)? @ -No Were there social determinants of health that impacted care today? How? (Homelessness, low income, unemployed, alcoholism, drug addiction, transportation, low edu. Level, literacy, decrease access to med. care, detention, rehab)? @ -No Was there de-escalation of care discussed even if they declined (Discuss DNR or withdrawal of care, Hospice)? DNR status @ -No What co-morbidities impacted this encounter? (DM, HTN, Smoking, COPD, CAD, Cancer, CVA, ARF, Chemo, Hep., AIDS, mental health diagnosis, sleep apnea, morbid obesity)? @ -Hypertension Was patient admitted / discharged? Hospital course, mention meds given and route, prescriptions, significant lab abnormalities, going to OR and other pertinent info. @ -Initial dose of p.o. Keflex provided patient with Keflex regimen sent to patient's pharmacy as well as mupirocin ointment. Wound care instructions provided. Discussed patient with Dr. Suggs. Undiagnosed new problem with uncertain prognosis? @ -No Drug Therapy requiring intensive monitoring for toxicity (Heparin, Nitro, Insulin, Cardizem)? @ -No Were any procedures done? @ -No Diagnosis/symptom? @ -Cellulitis of scalp, hypertension Acute, or Chronic, or Acute on Chronic? @ -Acute Uncomplicated (without systemic symptoms) or Complicated (systemic symptoms)? @ -Uncomplicated Side effects of treatment? @ -No Exacerbation, Progression, or Severe Exacerbation? @ -No Poses a threat to life or bodily function? How? (Chest pain, [place], [place], pneumonia, PE, COPD, DKA, ARF, appy, cholecystitis, CVA, Diverticulitis, Homicidal, Suicidal, threat to staff... and all critical care pts) @ -No Disposition Clinical Impression: Cellulitis of scalp Disposition: HOME SELF-CARE Condition: Good Instructions (If sedation given, give patient instructions): Acute Wound Care (ED) Prescriptions: Mupirocin 2% Oint [Bactroban 2% Oint] 1 applic TOPICAL BID #22 gm Cephalexin [Keflex] 500 mg PO Q6HR 1 Days #28 cap Is patient prescribed a controlled substance at d/c from ED?: No Referrals: None,Stated [Primary Care Provider] - 1-2 days Time of Disposition: 18:25
[2024-12-15] MEDS: CEPHALEXIN 500 MG CAP PO STA (18:27)
== END 2024-12-15 18:58 | disposition home or self-care (01) ==
LOC: EC 17:53
DX: L03.811 Cellulitis of head [any part, except face] (principal); I10 Essential (primary) hypertension; F17.290 Nicotine dependence, other tobacco product, uncomplicated
CPT/HCPCS: 99282